=== PATIENT | female | born 1965 | race Caucasian/White ===

== ENCOUNTER 2018-03-20 10:54 | Outpatient (CLI) | payer BC ==
--- NOTE | 2018-03-20 13:05 | RAD ---
THREE VIEWS LEFT FOOT: Date: 03-20-18 History: Left foot pain. FINDINGS: The lisfranc joint appears normally aligned. There is no fracture or dislocation involving the left f oot. 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 IMPRESSION: No acute osseous abnormality left foot. POS: [facility]
== END 2018-03-20 10:55 | disposition home or self-care (01) ==
LOC: RAD-FRANK 10:54
PROVIDERS: ATTEND Nurse Practitioner Family
DX: M79.672 Pain in left foot (principal)